=== PATIENT | male | born 1995 | race Caucasian/White ===

== ENCOUNTER 2017-03-02 19:12 | Emergency (ER) | payer BC ==
--- NOTE | 2017-03-02 19:25 | PDOC ---
General Adult HPI - General Chief Complaint: General Medical Stated Complaint: KICKED BY HORSE NOW C/O LOWER BACK PAIN/BLOOD URIN Date Seen by Provider: 03/02/17 Time Seen by Provider: 19:25 - History of Present Illness Initial Comment: Patient is a very nice 21-year-old young man who presents to the emergency department with complaints of a horse kick injury to his right flank and hematuria. Apparently he was working with a horse it up jumping off of it the horse struck him with its front is causing a bruise and impact injury to his right flank. He had instant substantial pain in that right flank including into his ribs and then when he tried to avoid had some gross hematuria. He presented to the emergency department for evaluation. He has no other substantial injuries he is not walking with a limp and did not affect his pelvis or hip at all. He has no shortness of breath that is complaining of. He hasn't no abdominal distention or abdominal pain. He denies any vomiting. Have you received a tetanus shot in the past 10 years?: Unknown - Patient Home Medications Home Medications: Home Medications NK [No Home Medications Reported] 03/02/17 - Patient Allergies Allergies/Adverse Reactions: Allergies Allergy/AdvReac Type Severity Reaction Status Date / Time No Known Drug Allergies Allergy NOT Verified 03/02/17 19:34 APPLICABLE Past Medical History - heen HEENT History: Denies History Cardiovascular History: Denies History Respiratory History: Denies History Gastrointestinal History: Denies History Genitourinary History: Denies History Endocrine History: Denies History Neurological History: Denies History Psychiatric History: Denies History Cancer History: Denies History Past Medical History Reviewed: Reviewed - No Changes ROS - Limitations ROS Limitations: No Limitations Constitution: REPORTS: Denies Symptoms Cardiovascular: REPORTS: Denies Cardiac Symptoms Respiratory: REPORTS: Denies Resp Symptoms Neurological: REPORTS: Denies Neuro Symptoms Gastrointestinal: REPORTS: Denies GI Symptoms General Adult Exam - General Appearance General Appearance: POSITIVE: Alert, Cooperative - HEENT HEENT: POSITIVE: Head Inspection Nml - Neck Neck: POSITIVE: Normal Inspection - Respiratory Respiratory: POSITIVE: No Respiratory Distress, Breath Sounds Normal, Other ( There are some pain in his lower right ribs posteriorly) - Cardiovascular Cardiovascular: POSITIVE: Regular Rate & Rhythm - Abdomen Abdomen: Soft: (All Quadrants), Normal Bowel Sounds: (All Quadrants), Denies Tenderness: (All Quadrants) - Back Back: POSITIVE: Other (He has a abrasions approximately 8 or 10 inches long in the right costovertebral angle and flank area that goes down to the low back. 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 As Tested General Adult Progress - Results Reviewed by me Xrays/CTs/US Reviewed by me: Yes Lab Results Reviewed: Yes Lab Results:: Laboratory Results 03/02/17 Range/Units 19:45 WBC 7.06 (4.8-10.8) 10^3/uL RBC 4.96 (4.70-6.10) 10^6/uL Hgb 14.9 (14.0-18.0) g/dL Hct 43.6 (42.0-52.0) % MCV 87.9 (80-90) FL MCH 30.0 (27-31) PG MCHC 34.2 (33-37) g/dL RDW Std Deviation 40.7 (39-50) fL RDW Coeff of Brittney 12.9 (11.5-14.5) % Plt Count 210 (140-350) 10*3/uL MPV 10.2 (7.4-12.2) FL Immature Gran % (Auto) 0.1 (0-5) % Neut % (Auto) 57.5 (50-80) % Lymph % (Auto) 31.9 (10-50) % [place] % (Auto) 9.1 (5-15) % Eos % (Auto) 1.1 (0-8) % Baso % (Auto) 0.3 (0-1) % Immature Gran # (Auto) 0.01 10*3/UL Neut # (Auto) 4.06 10*3/UL Lymph # (Auto) 2.25 10*3/uL [place] # (Auto) 0.64 (0.3-0.8) 10*3/UL Eos # (Auto) 0.08 10*3/UL Baso # (Auto) 0.02 10*3/UL WBC Morphology Comment Normal morphology (NORM) Plt Morphology Comment Normal morphology (NORM) RBC Morph Comment Normal morphology (NORM) Sodium 137 (135-145) meq/L Potassium 3.7 L (3.8-5.2) meq/L Chloride 104 (98-112) meq/L Carbon Dioxide 25 (23-33) meq/L Anion Gap 8 (5-20) BUN 27 H (7-22) mg/dL Creatinine 1.0 (0.50-1.20) mg/dL Estimated GFR > 60 (>60 ml/min/1.73m(2)) BUN/Creatinine Ratio 27.00 H (6-20) Glucose 84 (78-110) mg/dL Calculated Osmolality 287.0 (267-292) mOsm/kg Calcium 9.0 (8.7-10.7) mg/dL Total Bilirubin 1.1 (0.3-1.2) mg/dL AST 29 (21-57) IU/L ALT 34 (21-72) IU/L Alkaline Phosphatase 60 (50-259) IU/L Total Protein 7.1 (6.1-8.0) g/dL Albumin 4.3 (3.7-5.6) g/dL Globulin 2.9 (2.50-4.10) g/dL Albumin/Globulin Ratio 1.40 (1.3-2.0) mg/g Ur Collection Type Voided specimen Urine Color Yellow Urine Clarity Clear (CLEAR) Urine pH 6.5 (5.0-8.5) Ur Specific [place] 1.015 (1.005-1.030) Urine Protein Negative (NEG) mg/dl Urine Glucose (UA) Negative (NEG) mg/dL Urine Ketones 15 (NEG) Urine Occult Blood Negative (NEG) Urine Nitrate Negative (NEG) Urine Bilirubin Negative (NEG) Urine Urobilinogen 1.0 (0.2) EU/dL Ur Leukocyte Esterase Negative (NEG) Ur Culture Indicated? Culture not set - Patient's Progress MDM / ED Course: Patient Domitila benign-appearing labs his chest x-ray shows no evidence of rib fracture or pneumothorax or hemothorax. He is retroperitoneal ultrasound shows no evidence of kidney bleeding retroperitoneal bleed either. He has a benign abdominal exam I doubt any sort of intra-abdominal bleeding as there is no peritoneal signs. Ultimately his urinalysis didn't even show any obvious red blood cells. He did have gross hematuria immediately after the incident though. I have told her primary worthwhile repeating a UA again at some point. But that for the next couple days he be fine to push the fluids use some Tylenol ibuprofen cold packs as needed for his back and simply rest. I've asked him to do no bending stooping lifting or anything that causes increased pain. If his symptoms do not resolve rather quickly over the next week or 2 he should consider evaluation through orthopedics or his primary care provider and/ or physical therapy. Patient Care Time - Estimated PCT Patient Care Time (In Minutes): 30 Vital Signs - VS Reviewed Vital Signs Reviewed: Yes (all of his vital signs are benign) Discharge Clinical Impression: Hematuria Traumatic ecchymosis of flank Qualifiers: Qualifier Code: (S30.1XXA) Contusion of abdominal wall, initial encounter Discharge Disposition: Discharged to Home Condition: Stable Patient Instructions Given at Discharge: Hematuria (ED), Abrasion (ED) Additional Instructions: Rest, do no lifting bending or stooping until your back is feeling much better. Return to the emergency department immediately if you have increasing abdominal pain abdominal rigidity abdominal distention or any other increasing symptoms or symptoms of concern Consider having your primary care doctor repeat a urinalysis to ensure that your urine is free from any bleeding. Your ultrasound was normal showing no evidence of gross kidney injury. Use [id number] ibuprofen and Tylenol as needed to help with discomfort. You may use ice intermittently over the next 24-48 hours to limit swelling and help with symptom management You can switch to heat after a couple of days to help with symptom management Follow Up With: OZZIE MARTINEZ [Primary Care Provider] -
[2017-03-02 19:53] LABS: BASOPHILS # (AUTO) 0.02 10*3/UL; BASOPHILS % (AUTO) 0.3 % (0-1); EOSINOPHILS # (AUTO) 0.08 10*3/UL; EOSINOPHILS % (AUTO) 1.1 % (0-8); HEMATOCRIT 43.6 % (42.0-52.0); HEMOGLOBIN 14.9 g/dL (14.0-18.0); LYMPHOCYTES # (AUTO) 2.25 10*3/uL; MEAN CORPUSCULAR HGB CONC 34.2 g/dL (33-37); MEAN CORPUSCULAR VOLUME 87.9 FL (80-90); MEAN PLATELET VOLUME 10.2 FL (7.4-12.2); MONOCYTES # (AUTO) 0.64 10*3/UL (0.3-0.8); MONOCYTES % (AUTO) 9.1 % (5-15); NEUTROPHILS # (AUTO) 4.06 10*3/UL; NEUTROPHILS % (AUTO) 57.5 % (50-80); PLATELET MORPHOLOGY COMMENT NORMAL MORPHOLOGY (NORM); RBC MORPHOLOGY COMMENT NORMAL MORPHOLOGY (NORM); RED BLOOD COUNT 4.96 10^6/uL (4.70-6.10); WBC MORPHOLOGY COMMENT NORMAL MORPHOLOGY (NORM)
[2017-03-02 19:54] LABS: CLARITY,URINE CLEAR (CLEAR); COLOR,URINE YELLOW; PH,URINE 6.5 (5.0-8.5); URINE SAMPLE TYPE VOIDED SPECIMEN
[2017-03-02 19:55] LABS: BILIRUBIN,URINE NEGATIVE (NEG); GLUCOSE, URINE (UA) NEGATIVE (NEG); NITRATE,URINE NEGATIVE (NEG); OCCULT BLOOD,URINE NEGATIVE (NEG); PROTEIN,URINE NEGATIVE (NEG)
[2017-03-02 20:03] LABS: BLOOD UREA NITROGEN 27 mg/dL (7-22); EST GLOMERULAR FILTRATION > 60 (>60 ml/min/1.73m(2)); SERUM ALBUMIN 4.3 g/dL (3.7-5.6)
--- NOTE | 2017-03-02 20:21 | DI ---
HISTORY: Kicked in flank by horse. FINDINGS: The heart is within normal limits. The lung ayala are essentially clear. IMPRESSION: 1. No acute cardiopulmonary pathology identified.
--- NOTE | 2017-03-02 20:30 | DI ---
HISTORY: Gross hematuria after being kicked in left flank by a horse. TECHNIQUE: Sonographic images of the kidneys and renal collecting system were obtained and submitted for interpretation. FINDINGS: Right kidney measures 11.2 cm in length. Left kidney measures 11.6 cm in length. Both kidneys maintain a normal renal contour. No hydronephrosis, or contour deforming renal masses identified. Vascularity appears within normal limits. There is no significant free fluid. IMPRESSION: 1. No acute pathology. NOTE: The interpreting Radiologist was not present at the time of ultrasound interrogation.
[2017-03-02 21:51] VITALS: RESP 18; TEMP 98.8
== END 2017-03-02 20:56 | disposition home or self-care (01) ==
LOC: ER 19:12
DX: R31.9 Hematuria, unspecified (principal); S30.811A Abrasion of abdominal wall, initial encounter; S30.1XXA Contusion of abdominal wall, initial encounter; M54.5 Low back pain; R10.11 Right upper quadrant pain; W55.12XA Struck by horse, initial encounter
CPT/HCPCS: 71020; 76775; 80053; 81003; 85025; 99283